=== PATIENT | female | born 1965 | race Asian ===

== ENCOUNTER 2023-05-31 08:07 | Day surgery (SDC) | payer OTHER ==
[~2023-05-31] VITALS: Ht 144.8 cm; Wt 54.0 kg
[2023-05-31] MEDS ORDERED: fentaNYL citrate 0.05 MG/ML VIAL ONE ×2 (09:05→09:09)
[2023-05-31] MEDS: fentaNYL citrate 0.05 MG/ML VIAL IVP ONE (09:32)
[2023-05-31] MEDS: LIDOCAINE 2% 100 MG/5 ML UJET TP ONE (09:37)
[2023-05-31] MEDS ORDERED: fentaNYL citrate 0.05 MG/ML VIAL IVP SCH (10:30)
== END 2023-05-31 10:37 | disposition home or self-care (01) ==
LOC: MDS 08:07 → MMU 08:11 → MDS 10:37
PROVIDERS: ATTEND Internal Medicine Gastroenterology
DX: Z12.11 Encounter for screening for malignant neoplasm of colon (principal); K63.5 Polyp of colon; Z80.0 Family history of malignant neoplasm of digestive organs; Z79.899 Other long term (current) drug therapy; Z98.890 Other specified postprocedural states
CPT/HCPCS: 45385; J3010